=== PATIENT | female | born 1990 | race African-American/Black ===

== ENCOUNTER 2018-09-12 08:49 | Emergency (ER) | payer BC, OTHER ==
[~2018-09-12] VITALS: Ht 170.2 cm; Wt 72.0 kg
[2018-09-12 10:14] VITALS: BP 129/84
== END 2018-09-12 10:14 | disposition home or self-care (01) ==
LOC: ER 08:49
DX: K11.8 Other diseases of salivary glands (principal); J45.909 Unspecified asthma, uncomplicated; D64.9 Anemia, unspecified; Z98.890 Other specified postprocedural states
CPT/HCPCS: 81025; 99282